=== PATIENT | male | born 1950 | race Hispanic/Latino ===

== ENCOUNTER 2016-06-11 17:12 | Emergency (ER) | payer MEDICARE ==
[2016-06-11 18:48] LABS: Basophils % (Auto) 1.9 % (0.0-1.8); Hemoglobin 12.4 gm/dl (11.8-15.2); Mean Corpuscular HGB Conc 31 % (32-34); Mean Corpuscular Hemoglobin 29 pg (28-32); Mean Corpuscular Volume 92 fl (84-94); Platelet Count 289 K/mm3 (140-440); Red Blood Count 4.36 M/mm3 (3.65-5.03); Red Cell Distribution Width 16.7 % (13.2-15.2); White Blood Count 7.7 K/mm3 (4.5-11.0)
[2016-06-11 18:58] LABS: INR 1.03 (0.87-1.13)
[2016-06-11 18:59] LABS: Partial Thromboplastin Time 30.6 Sec. (24.2-36.6)
[2016-06-11 19:08] LABS: BUN/Creatinine Ratio 4.82; Calcium 8.9 mg/dL (8.4-10.2); Chloride 92.2 mmol/L (98-107); Potassium 3.7 mmol/L (3.6-5.0)
--- NOTE | 2016-06-11 22:12 | Emergency Department Report ---
ED General Adult HPI - General Chief complaint: Medical Clearance Stated complaint: BLEEDING FROM DIAYLSIS PORT Time Seen by Provider: 06/11/16 18:02 Source: EMS Mode of arrival: Stretcher Limitations: Other - History of Present Illness Initial comments: Patient was sent for bleeding from his dialysis port. He received 40 minutes of his treatment. Then his shunt started bleeding. A clamp was applied above the shunt. He arrived at this facility with no active bleeding. The patient states he hasn't had a problem with shunt bleeding in the past. He denies a history of a bleeding disorder or a low platelet count. He is perhaps a poor historian though. He is apparently total care. -: Gradual Severity scale (0 -10): 0 Associated Symptoms: denies other symptoms - Related Data Home Medications Medication Instructions Recorded Confirmed Last Taken Carvedilol [Coreg] 6.25 mg PO BID 08/02/15 05/22/16 1 Day Ago Rosuvastatin Calcium [Crestor] 40 mg PO DAILY 08/02/15 05/22/16 1 Day Ago Gabapentin [Neurontin] 300 mg PO BID 01/01/16 05/22/16 1 Day Ago Calcium Acetate 1 tab PO TID 04/05/16 05/22/16 1 Day Ago Omeprazole 20 mg PO DAILY 04/05/16 05/22/16 1 Day Ago Pentoxifylline [TRENtal] 400 mg PO DAILY 04/05/16 05/22/16 1 Day Ago Sevelamer Carbonate [Renvela] 800 mg PO BIDWM 04/05/16 05/22/16 1 Day Ago amLODIPine [Norvasc] 10 mg PO DAILY 04/05/16 05/22/16 1 Day Ago clonazePAM 0.5 mg PO BID 04/05/16 05/22/16 1 Day Ago levETIRAcetam [Keppra TAB] 500 mg PO BID 04/05/16 05/22/16 1 Day Ago Previous Rx's Medication Instructions Recorded Last Taken Type Aspirin EC [Aspirin Enteric Coated 81 mg PO QDAY #30 tablet 04/07/16 1 Day Ago Rx TAB] Clopidogrel [Plavix] 75 mg PO QDAY #30 tablet 04/07/16 1 Day Ago Rx Isosorbide Dinitrate [Isordil 10 mg PO Q8HR #90 tablet 04/07/16 1 Day Ago Rx Titradose] Nitroglycerin [Nitrostat] 0.4 mg SL Q5M PRN #30 tab 04/07/16 2 Months Ago Rx PARoxetine [Paxil] 10 mg PO DAILY tablet 04/07/16 1 Day Ago Rx Levofloxacin [Levaquin] 750 mg PO Q48H #5 tablet 05/22/16 Unknown Rx Allergies Allergy/AdvReac Type Severity Reaction Status Date / Time No Known Allergies Allergy Verified 01/15/15 14:01 ED Review of Systems ROS: Stated complaint: BLEEDING FROM DIAYLSIS PORT Other details as noted in HPI Constitutional: denies: chills, fever Respiratory: no symptoms reported. denies: cough, shortness of breath, wheezing Cardiovascular: denies: chest pain, palpitations Endocrine: no symptoms reported Genitourinary: as per HPI Musculoskeletal: as per HPI Skin: as per HPI Neurological: as per HPI Psychiatric: as per HPI ED Past Medical Hx - Past Medical History Hx Hypertension: Yes Hx CVA: Yes Hx Heart Attack/AMI: Yes Hx Congestive Heart Failure: Yes Hx Diabetes: Yes Hx Pulmonary Embolism: No Hx Renal Disease: Yes Hx Arthritis: Yes Hx Seizures: Yes Hx Asthma: No Hx COPD: Yes Hx Dementia: Yes Hx HIV: No Additional medical history: CAD - Surgical History Hx Coronary Stent: Yes Hx Open Heart Surgery: No Hx Pacemaker: No Hx Internal Defibrillator: No Hx Appendectomy: No Hx Breast Surgery: Yes Additional Surgical History: hernia repair, AV shunt - Social History Smoking Status: Never Smoker Substance Use Type: None - Medications Home Medications: Home Medications Medication Instructions Recorded Confirmed Last Taken Type Carvedilol [Coreg] 6.25 mg PO BID 08/02/15 05/22/16 1 Day Ago History Rosuvastatin Calcium [Crestor] 40 mg PO DAILY 08/02/15 05/22/16 1 Day Ago History Gabapentin [Neurontin] 300 mg PO BID 01/01/16 05/22/16 1 Day Ago History Calcium Acetate 1 tab PO TID 04/05/16 05/22/16 1 Day Ago History Omeprazole 20 mg PO DAILY 04/05/16 05/22/16 1 Day Ago History Pentoxifylline [TRENtal] 400 mg PO DAILY 04/05/16 05/22/16 1 Day Ago History Sevelamer Carbonate [Renvela] 800 mg PO BIDWM 04/05/16 05/22/16 1 Day Ago History amLODIPine [Norvasc] 10 mg PO DAILY 04/05/16 05/22/16 1 Day Ago History clonazePAM 0.5 mg PO BID 04/05/16 05/22/16 1 Day Ago History levETIRAcetam [Keppra TAB] 500 mg PO BID 04/05/16 05/22/16 1 Day Ago History Aspirin EC [Aspirin Enteric Coated 81 mg PO QDAY #30 tablet 04/07/16 05/22/16 1 Day Ago Rx TAB] Clopidogrel [Plavix] 75 mg PO QDAY #30 tablet 04/07/16 05/22/16 1 Day Ago Rx Isosorbide Dinitrate [Isordil 10 mg PO Q8HR #90 tablet 04/07/16 05/22/16 1 Day Ago Rx Titradose] Nitroglycerin [Nitrostat] 0.4 mg SL Q5M PRN #30 tab 04/07/16 05/22/16 2 Months Ago Rx PARoxetine [Paxil] 10 mg PO DAILY tablet 04/07/16 05/22/16 1 Day Ago Rx Levofloxacin [Levaquin] 750 mg PO Q48H #5 tablet 05/22/16 Unknown Rx ED Physical Exam - General Limitations: Other General appearance: alert, in no apparent distress - Head Head exam: Present: atraumatic, normocephalic - Eye Eye exam: Present: normal appearance, 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 Absent: tenderness, meningismus - Respiratory Respiratory exam: Present: normal lung sounds bilaterally. Absent: respiratory distress - Cardiovascular Cardiovascular Exam: Present: regular rate, normal rhythm. Absent: systolic murmur, diastolic murmur, rubs, gallop - GI/Abdominal GI/Abdominal exam: Present: soft, normal bowel sounds. Absent: distended, tenderness, guarding, rebound, rigid - Rectal Rectal exam: Present: deferred - Extremities Exam Extremities exam: Present: other (feet in cushion supports bilaterally) - Back Exam Back exam: Present: normal inspection - Neurological Exam Neurological exam: Present: alert, oriented X3, other (apparently paraplegic) - Psychiatric Psychiatric exam: Present: normal affect, normal mood - Skin Skin exam: Present: warm, dry, intact, normal color. Absent: rash ED Course Vital Signs 06/11/16 06/11/16 17:31 19:30 Temperature 99 F Pulse Rate 77 76 Respiratory 18 Rate Blood Pressure 152/69 Blood Pressure 148/72 [Left] O2 Sat by Pulse 98 Oximetry - Reevaluation(s) Reevaluation #1: The patient's clamp was removed. There was no bleeding. A healing stat dressing was placed. The patient was observed. There was no further bleeding. He was discharged in stable condition. 06/11/16 22:17 ED Medical Decision Making - Lab Data Result diagrams: 06/11/16 18:36 06/11/16 18:36 Critical care attestation.: If time is entered above; I have spent that time in minutes in the direct care of this critically ill patient, excluding procedure time. ED Disposition Clinical Impression: ESRD (end stage renal disease) on dialysis Bleeding from dialysis shunt Qualifiers: Encounter type: initial encounter Qualified Code(s): T82.838A - Hemorrhage due to vascular prosthetic devices, implants and grafts, initial encounter Disposition: DISCHARGED TO HOME OR SELFCARE Is pt being admited?: No Does the pt Need Aspirin: No Condition: Stable Time of Disposition: 22:18
[2016-06-11 23:13] VITALS: BP 142/70
== END 2016-06-11 23:13 | disposition home or self-care (01) ==
LOC: ED 17:12
DX: T82.838A Hemorrhage due to vascular prosthetic devices, implants and grafts, initial encounter (principal); E11.22 Type 2 diabetes mellitus with diabetic chronic kidney disease; I12.0 Hypertensive chronic kidney disease with stage 5 chronic kidney disease or end stage renal disease; N18.6 End stage renal disease; Z99.2 Dependence on renal dialysis; I25.2 Old myocardial infarction; J44.9 Chronic obstructive pulmonary disease, unspecified; F03.90 Unspecified dementia, unspecified severity, without behavioral disturbance, psychotic disturbance, mood disturbance, and anxiety; Z86.73 Personal history of transient ischemic attack (TIA), and cerebral infarction without residual deficits; Y84.8 Other medical procedures as the cause of abnormal reaction of the patient, or of later complication, without mention of misadventure at the time of the procedure
CPT/HCPCS: 36415; 80048; 85025; 85610; 85730; 86850; 86900; 86901